=== PATIENT | female | born 1965 | race African-American/Black ===

== ENCOUNTER 2016-07-06 03:51 | Emergency (ER) | payer OTHER ==
[2016-07-06 04:35] VITALS: BP 118/66
[2016-07-06 04:37] LABS: Hematocrit 41 % (35-47); Hemoglobin 13.4 g/dl (12.0-16.0); Mean Corpuscular HGB Conc 33 g/dl (31-36); Mean Corpuscular Hemoglobin 27 pg (27-31); Mean Corpuscular Volume 82 fL (80-97); Mean Platelet Volume 10 um3 (7.4-10.4); Red Blood Count 4.97 10^6/ul (4.0-5.4); Red Cell Distribution Width 15 % (10.5-15)
--- NOTE | 2016-07-06 04:39 | ED ---
[employer] [facility], scribed for Erickson Yeh MD on 07/06/16 at 0411 . Shortness of Breath - HPI Summary HPI Summary: Patient is a 51 y/o female coming to [facility] fore evaluation of intermittent SOB and lightheadedness for the last 2 days. Patient states that nothing is making her symptoms better or worse. She has no other complaints at this time. - History of Current Complaint Chief Complaint: EDShortnessOfBreath Time Seen by Provider: 07/06/16 03:56 Hx Obtained From: Patient Onset/Duration: Gradual Onset, Lasting Days, Still Present Timing: Intermittent Episodes Lasting: Current Severity: Moderate Dyspnea At: Rest Aggrevating Factors: Nothing Alleviating Factors: Nothing Associated Signs & Symptoms: Dizzy - lightheaded - Allergy/Home Medications Allergies/Adverse Reactions: Allergies Allergy/AdvReac Type Severity Reaction Status Date / Time Lisinopril Allergy Severe ANAPHYLATIC Verified 07/06/16 04:00 RXN PMH/Surg Hx/FS Hx/Imm Hx Endocrine/Hematology History: Denies: Hx Sickle Cell Disease Cardiovascular History: Reports: Hx Hypertension Denies: Hx Pacemaker/ICD Respiratory History: Denies: Other Respiratory Problems/Disorders GI History: Reports: Other GI Disorders - DIVERTICULITIS History: Denies: Other Problems/Disorders Musculoskeletal History: Reports: Hx Arthritis - KNEES AND ANKLES, Hx Bursitis - LEFT AND RIGHT HIP Denies: Other Musculoskeletal History Sensory History: Reports: Hx Contacts or Glasses - GLASSES Denies: Hx Hearing Aid Opthamlomology History: Reports: Hx Contacts or Glasses - GLASSES Neurological History: Reports: Hx Headaches Psychiatric History: Reports: Hx Anxiety Denies: Hx Panic Disorder - Surgical History Surgery Procedure, Year, and Place: APPENDECTOMY -1989; left knee arthroscopy- 2012 Hx Anesthesia Reactions: No Infectious Disease History: No Infectious Disease History: Denies: Traveled Outside the [place] in Last 30 Days - Family History Known Family History: Positive: Diabetes Negative: Cardiac Disease - Social History Alcohol Use: Rare Substance Use Type: Reports: None Smoking Status (MU): Current Every Day Smoker Type: Cigarettes Amount Used/How Often: down to 2 cigarettes per day Have You Smoked in the Last Year: Yes Review of Systems Positive: Shortness Of Breath Neurological: Other - lightheaded All Other Systems Reviewed And Are Negative: Yes Physical Exam Triage Information Reviewed: Yes Vital Signs On Initial Exam: Initial Vitals Temp Pulse Resp BP Pulse Ox 99.9 F 81 14 129/80 98 07/06/16 03:56 07/06/16 03:56 07/06/16 03:56 07/06/16 03:56 07/06/16 03:56 Vital Signs Reviewed: Yes Appearance: Positive: Well-Appearing, No Pain Distress Skin: Positive: Warm Eyes: Positive: YONG ENT: Positive: Hearing grossly normal Neck: Positive: Supple Respiratory/Lung Sounds: Positive: Clear to Auscultation, Breath Sounds Present Cardiovascular: Positive: RRR Abdomen Description: Positive: Nontender, Soft Bowel Sounds: Positive: Present Musculoskeletal: Positive: Strength/ROM Intact Neurological: Positive: Sensory/Motor Intact, Alert, Oriented to Person Place, Time Diagnostics - Vital Signs Vital Signs Temp Pulse Resp BP Pulse Ox 07/06/16 03:56 99.9 F 81 14 129/80 98 - Laboratory Lab Results: Lab Results 07/06/16 Range/Units 04:23 WBC 7.0 (3.5-10.8) 10^3/ul RBC 4.97 (4.0-5.4) 10^6/ul Hgb 13.4 (12.0-16.0) g/dl Hct 41 (35-47) % MCV 82 (80-97) fL MCH 27 (27-31) pg MCHC 33 (31-36) g/dl RDW 15 (10.5-15) % Plt Count 227 (150-450) 10^3/ul MPV 10 (7.4-10.4) um3 Neut % (Auto) 52.2 (38-83) % Lymph % (Auto) 35.8 (25-47) % [place] % (Auto) 10.7 H (1-9) % Eos % (Auto) 0.8 (0-6) % Baso % (Auto) 0.5 (0-2) % Absolute Neuts (auto) 3.6 (1.5-7.7) 10^3/ul Absolute Lymphs (auto) 2.5 (1.0-4.8) 10^3/ul Absolute Monos (auto) 0.7 (0-0.8) 10^3/ul Absolute Eos (auto) 0.1 (0-0.6) 10^3/ul Absolute Basos (auto) 0 (0-0.2) 10^3/ul Absolute Nucleated RBC 0.01 10^3/ul Nucleated RBC % 0.1 Result Diagrams: 07/06/16 04:23 07/06/16 04:23 Lab Statement: Any lab studies that have been ordered have been reviewed, and results considered in the medical decision making process. - Radiology CXR Xray Interpretation: No Acute Changes Radiology Interpretation Completed By: ED Physician Re-Evaluation - Re-Evaluation First Eval Re-Evaluation Time: 05:21 - results d/.w pt Change: Improved Course/Dx - Diagnoses Provider Diagnoses: Shortness of breath, Renal insufficiency Discharge - Discharge Plan Condition: Stable Disposition: HOME Patient Education Materials: Dyspnea (ED) Referrals: [facility] [Outside] The documentation as recorded by the Brain [employer] [facility] accurately reflects the service I personally performed and the decisions made by me, Erickson Yeh MD.
[2016-07-06 04:49] LABS: Albumin 4.5 g/dL (3.2-5.2); BUN/Creatinine Ratio 24.4 (8-20); Calcium 10.2 mg/dL (8.6-10.3); EGFR African American 43.4 (>60); EGFR Non-African American 33.7 (>60); Globulin 3.5 g/dL (2-4); Potassium 3.1 mmol/L (3.5-5.0); Total Bilirubin 0.9 mg/dL (0.2-1.0)
--- NOTE | 2016-07-06 09:49 | RAD ---
INDICATION: Shortness of breath and dizziness COMPARISON: None TECHNIQUE: PA and lateral views of the chest were obtained. FINDINGS: The heart and mediastinum are normal in size and contour. The lungs are grossly clear. There is no evidence of large pleural effusion. Visualized bones are normal for the patient's age. There is no radiographic evidence of free air beneath the diaphragm IMPRESSION: No radiographic evidence of acute cardiopulmonary disease.
== END 2016-07-06 05:27 | disposition home or self-care (01) ==
LOC: ED 03:51
DX: N28.9 Disorder of kidney and ureter, unspecified (principal); R06.02 Shortness of breath; R42 Dizziness and giddiness
CPT/HCPCS: 36415; 71020; 80053; 85025; 99282